=== PATIENT | male | born 1975 | race Caucasian/White ===

== ENCOUNTER → 2023-06-10 08:20 | Outpatient (CLI) | payer OTHER, SELFPAY ==
--- NOTE | ~2023-06-10 | US_ITS ---
US soft tissue groin RT 06/10/2023 08:43 Indication: Hernia. Right groin pain. Lifting heavy boxes. Procedure: Resolution Limited ultrasound of the right groin Comparison: No prior studies for comparison. Findings: There is a right inguinal hernia with bowel extending into the hernia. Motility is demonstr ated. The neck of the hernia measures 1.3 cm. Impression: 1: Right inguinal hernia containing bowel. Reviewed, dictated and finalized at location B. Impression: 1: Right inguinal hernia containing bowel.
== END ==
PROVIDERS: PCP Family Medicine; Visit Provider Nurse Practitioner Family
DX: R10.31 Right lower quadrant pain (principal); K40.90 Unilateral inguinal hernia, without obstruction or gangrene, not specified as recurrent
CPT/HCPCS: 76882

== ENCOUNTER 2024-01-08 07:57 | Outpatient (CLI) | payer BC, SELFPAY | END 2024-01-08 07:58 | disposition home or self-care (01) | PROVIDERS: PCP Nurse Practitioner Adult Health; Visit Provider Nurse Practitioner Adult Health | DX: H90.3 Sensorineural hearing loss, bilateral (principal) | CPT/HCPCS: 92557; 92567 ==

== ENCOUNTER 2024-01-14 08:17 | Outpatient (CLI) | payer BC, SELFPAY ==
[2024-01-14 18:48] LABS: Alanine Aminotransferase 110 U/L (6-50); Albumin Level 4.2 g/dL (3.5-5.1); Alkaline Phosphatase 109 U/L (38-126); Anion Gap 7 mmol/L (4-12); Aspartate Amino Transferase 97 U/L (17-59); Bilirubin,Total 0.7 mg/dL (0.2-1.3); Blood Urea Nitrogen 11 mg/dL (9-20); Calcium 9.7 mg/dL (8.4-10.2); Carbon Dioxide 25 mmol/L (22-30); Chloride 107 mmol/L (98-107); Cholesterol 231 mg/dL (0-200); Estimated Glomerular Filt Rate > 60; Glucose 128 mg/dL (65-110); HDL Direct 22 mg/dL; Potassium 4.2 mmol/L (3.4-5.0); Sodium 139 mmol/L (137-145); Triglycerides 222 mg/dL (<150)
[2024-01-14 18:59] LABS: LDL Cholesterol Direct 172 mg/dL
[2024-01-14 19:33] LABS: Hemoglobin 17.6 g/dL (14.0-18.0); Mean Corpuscular HGB Conc 32.6 g/dl (32-36); Mean Corpuscular Hemoglobin 29.4 pg (26-34); Mean Corpuscular Volume 90.2 fl (80-100); Mean Platelet Volume 12.4 fl (7.4-10.4); Platelet Count Result 199 k/mm3 (150-375); Red Blood Count 5.99 M/mm3 (4.6-6.20); Red Cell Distribution Width 14.5 % (11.5-14.5); White Blood Count 6.6 K/mm3 (4.5-10.0)
== END 2024-01-14 08:18 | disposition home or self-care (01) ==
LOC: ANHBWCLAB 08:18
PROVIDERS: PCP Nurse Practitioner Adult Health; Visit Provider Nurse Practitioner Adult Health
DX: Z13.9 Encounter for screening, unspecified (principal)
CPT/HCPCS: 36415; 80053; 80061; 82607; 82746; 84443; 85027